=== PATIENT | female | born 1985 | race Caucasian/White ===

== ENCOUNTER 2018-06-28 15:45 | Inpatient (IN) | payer OTHER ==
[~2018-06-28] VITALS: Ht 152.4 cm; Wt 83.9 kg
--- NOTE | ~2018-06-28 | EKG ---
[place], [place] ELECTROCARDIOGRAM REPORT NAME: ZION BRANDT UNIT #: [id number] ROOM: 415 DOCTOR: IRENA DRAFT REPORT BIRTHDATE: [birth year] [facility] Test Date: 2018-06-29 Test Time: 13:32:34 Pat Name: ZION BRANDT Department: Room: 415 2 Gender: F Server Software Engineer: Chyna Klein : 1985 Requested By: DAVIN HOLT Order Number: [id number] Reading MD: Rianna Dempsey MD Measurements Intervals Dickinson Rate: 92 P: 62 UT: 132 QRS: 64 QRSD: 85 T: 8 QT: 385 QTc: 477 Interpretive Statements Sinus rhythm Borderline T wave abnormalities Borderline prolonged QT interval No previous ECG available for comparison Electronically Signed On 06-29-2018 16:19:24 PST by Rianna Dempsey MD CM:EKGRPT:ELECTROCARDIOGRAM REPORT [id number] DAVIN CHRISTENSEN DRAFT REPORT DAVIN HOLT DO
[2018-06-28 17:48] VITALS: BP 114/72
[2018-06-28 17:55] LABS: BILIRUBIN NEGATIVE (NEGATIVE); BLOOD 2+ (NEGATIVE); CLARITY CLEAR (CLEAR); COLOR YELLOW (YELLOW); GLUCOSE NEGATIVE (NEGATIVE); KETONE NEGATIVE (NEGATIVE); LEUKO ESTERASE NEGATIVE (NEGATIVE); NITRITE POSITIVE (NEGATIVE); PH 5.5 (5.0-9.0); SPECIFIC GRAVITY 1.025 (1.005-1.030); UROBILINOGEN 0.2 E.U./dl (0.2-1.0)
[2018-06-28 18:05] LABS: URINE AMPHETAMINES < 1000 (1000ng/ml); URINE BARBITURATES < 200 (200ng/ml); URINE BENZODIAZEPINES < 200 (200ng/ml); URINE CANNABINOIDS (THC) < 50 (50ng/ml); URINE COCAINE > 300 (300ng/ml); URINE METHADONE < 300 (300ng/ml); URINE OPIATES > 300 (300ng/ml)
[2018-06-28 18:06] LABS: BACTERIA 3+
[2018-06-28 18:10] LABS: URINE PHENCYCLIDINE < 25 (25ng/ml)
[2018-06-28 20:00] VITALS: BP 124/59
[2018-06-29] VITALS: BP 127/61
[2018-06-29 08:00] VITALS: BP 120/60
[2018-06-29 12:00] VITALS: BP 124/90
[2018-06-29 16:00] VITALS: BP 127/62
[2018-06-29 20:00] VITALS: BP 110/60
[2018-06-30] VITALS: BP 108/51
[2018-06-30 08:00] VITALS: BP 99/54
[2018-06-30 16:00] VITALS: BP 103/47
[2018-06-30 20:00] VITALS: BP 105/58
[2018-07-01] VITALS: BP 110/65
[2018-07-01 08:00] VITALS: BP 97/57
[2018-07-01 16:00] VITALS: BP 94/52
[2018-07-01 20:00] VITALS: BP 102/56
[2018-07-02] VITALS: BP 94/45
[2018-07-02 08:00] VITALS: BP 102/58; BP 80/46
== END 2018-07-02 09:48 | disposition left against medical advice (07) | DRG 894 ==
LOC: LAB 15:45 → EDSTATUS 15:45 → 4E 15:46
PROVIDERS: Internal Medicine
DX: F11.23 Opioid dependence with withdrawal (principal); F41.9 Anxiety disorder, unspecified; F14.10 Cocaine abuse, uncomplicated; F17.210 Nicotine dependence, cigarettes, uncomplicated; Z53.21 Procedure and treatment not carried out due to patient leaving prior to being seen by health care provider; G43.909 Migraine, unspecified, not intractable, without status migrainosus; Z71.6 Tobacco abuse counseling